=== PATIENT | female | born 1945 | race Caucasian/White ===

== ENCOUNTER 2018-02-19 23:04 | Inpatient (IN) | payer OTHER, MEDICARE ==
--- OUTSIDE RECORDS SUMMARY | 2018-02-19 23:05 | XMS REPORT | Clinical Summary ---
:1945 Author Organization [facility] Address [address] [place] [address] Care Team Providers Name Role Phone Asked, No Pcp Primary Care Provider Unavailable Allergies Active Allergy Reactions Severity Noted Date Comments Codeine Rash Low 12/02/2015 Meperidine Itching, GI Intolerance 12/02/2015 Current Medications Prescription Sig. Disp. Refills Start Date End Date Status ARMOUR THYROID 15 mg Take 1 tablet by 1 12/03/2015 Active tablet mouth once daily. ARMOUR THYROID 60 mg Take 1 tablet by 1 12/03/2015 Active tablet mouth once daily. Active Problems Problem Noted Date Ovarian cancer 01/11/2016 Personal history of malignant neoplasm of uterus 01/11/2016 Family History Medical History Relation Name Comments Colon cancer Father Hypertension Father Hypertension Mother Relation Name Status Comments Father Mother Social History Tobacco Use Types Packs/Day Years Used Date Never Smoker Alcohol Use Drinks/Week oz/Week Comments No Sex Assigned at Date Recorded Not on file Last Filed Vital Signs Not on file Plan of Treatment Health Maintenance Due Date Last Done Comments BREAST CANCER SCREENING 1996 COLON CANCER SCREENING 1996 SHINGRIX VACCINE (#1) 1996 ZOSTER VACCINE 2006 PNEUMOCOCCAL POLYSACCHARIDE VACCINE AGE 65 AND OVER 2011 PNEUMOCOCCAL-13 2011 INFLUENZA VACCINE 01/15/2018 Results Not on fileafter 02/18/2017 Insurance Payer Benefit Plan / Group Subscriber ID Type Phone Address MEDICARE MEDICARE PART A AND B xxxxxxxxxx Medicare [place], [place] AARP AARP SUPPLEMENT xxxxxxxxx Commercial Work: [employer] [phone] [address] Home:
[2018-02-19] MEDS ORDERED: NA CHLORIDE 0.9% 500 ML ONE (23:31)
[2018-02-19] MEDS ORDERED: ONDANSETRON 4 MG/2 ML VIAL ONE (23:31)
[2018-02-19 23:48] LABS: Absolute Lymphocytes (CBC) 1.8 K/uL (0.7-4.9); Absolute Monocytes 0.4 K/uL (0.1-1.3); Absolute Neutrophil 10.1 K/uL (1.8-8.0); Basophils % 0.9 % (0-1.3); Eosinophils % 0.3 % (0-4.4); Hematocrit 51.3 % (36.0-45.0); Lymphocytes % 14.5 % (15.3-44.8); MCH 31.3 pg (27.0-35.0); MCV 91.6 fL (80-100); MPV 7.6 fL (7.6-11.3)
[2018-02-20 00:17] LABS: Albumin 3.9 g/dL (3.4-5.0); Bilirubin Direct 0.2 mg/dL (0-0.2); Bilirubin Total 0.8 mg/dL (0.2-1.0); Potassium 3.8 mmol/L (3.5-5.1); Protein, Total 8.2 g/dL (6.4-8.2)
[2018-02-20] MEDS ORDERED: NA CHLORIDE 0.9% 500 ML ONE (00:20)
[2018-02-20] MEDS ORDERED: ONDANSETRON 4 MG/2 ML VIAL ONE (03:03)
[2018-02-20 03:20] LABS: Urine Amorphous Sediment 4+ /HPF (NONE SEEN); Urine Bacteria <20 /HPF (<20); Urine Culture Reflex Order NOT NEEDED; Urine RBC NONE SEEN /HPF (NONE SEEN)
[2018-02-20] MEDS ORDERED: METRONIDAZOLE 500mg IVPB 500 MG/100 ML BAG IV ONE (03:20)
[2018-02-20] MEDS ORDERED: CEFTRIAXONE/SWI 1gm 1 GM/10 ML SYR ONE (03:20)
[2018-02-20 03:22] LABS: Urine Blood NEGATIVE (NEG); Urine Glucose NEGATIVE (NEG); Urine Protein NEGATIVE (NEG); Urine Specific Gravity 1.015 (1.005-1.030); Urine pH 7.5 (5.0-7.0)
[2018-02-20] MEDS ORDERED: LIDOCAINE VISCOUS 2% SOLN 15 ML UDC ONE (03:27)
--- NOTE | 2018-02-20 03:29 | ER ---
Nurse's Notes [facility] Name: Yanelis Florentino Age: 72 yrs Sex: Female : 1945 Arrival Date: 02/19/2018 Time: 23:06 Bed 23 Private MD: Thom Gleason V Diagnosis: Small bowel obstruction;Enteritis;Dehydration Presentation: 02/19 23:18 Presenting complaint: Patient states: Reports she started having stomach cramps and ea vomiting at around 1430 today. Transition of care: patient was not received from another setting of care. Onset of symptoms was February 19, 2018. Risk Assessment: Do you want to hurt yourself or someone else? Patient reports no desire to harm self or others. Initial Sepsis Screen: Does the patient meet any 2 criteria? HR > 90 bpm. Yes Does the patient have a suspected source of infection? No. Patient's initial sepsis screen is negative. Care prior to arrival: None. 23:18 Method Of Arrival: Wheelchair ea 23:18 Acuity: BRENNEN 3 ea Triage Assessment: 23:21 General: Appears uncomfortable, Behavior is calm, cooperative, appropriate for age. ea Pain: Complains of pain in right lower quadrant Pain currently is 7 out of 10 on a pain scale. Quality of pain is described as Pain began 1430. Neuro: Level of Consciousness is awake, alert, obeys commands, Oriented to person, place, time, situation. Cardiovascular: Patient's skin is warm and dry. Respiratory: Airway is patent Respiratory effort is even, unlabored, Respiratory pattern is regular, symmetrical. GI: Abdomen is non-distended, Bowel sounds present X 4 quads. Abd is soft X 4 quads Abdomen is tender to palpation in right lower quadrant. : No signs and/or symptoms were reported regarding the genitourinary system. Derm: Skin is dry, Skin is pale, Skin temperature is warm. Musculoskeletal: Circulation, motion, and sensation intact. Historical: - Allergies: 23:21 Demerol; ea 23:21 Morphine; ea - PMHx: 23:21 Diverticulitis; Hypothyroidism; ea - PSHx: 23:21 Hysterectomy; Hernia repair; ea - Immunization history:: Adult Immunizations up to date. - Social history:: Smoking status: Patient/guardian denies using tobacco. - Ebola Screening: : No symptoms or risks identified at this time. - Family history:: not pertinent. - Hospitalizations: : No recent hospitalization is reported. Screenin:23 Abuse screen: Denies threats or abuse. Nutritional screening: No deficits noted. ea Tuberculosis screening: No symptoms or risk factors identified. Fall Risk None identified. Assessment: 23:45 Reassessment: Patient and/or family updated on plan of care and expected duration. Pain ea level reassessed. Patient is alert, oriented x 3, equal unlabored respirations, skin warm/dry/pink. reports nausea has decreased. 23:59 Reassessment: Pt completed contrast drink, CT notified. ea 02/20 00:04 Reassessment: Patient and/or family updated on plan of care and expected duration. Pain ea level reassessed. Patient is alert, oriented x 3, equal unlabored respirations, skin warm/dry/pink. 01:18 Reassessment: Patient and/or family updated on plan of care and expected duration. Pain ea level reassessed. Patient is alert, oriented x 3, equal unlabored respirations, skin warm/dry/pink. 02:11 Reassessment: Patient and/or family updated on plan of care and expected duration. Pain ea level reassessed. Patient is alert, oriented x 3, equal unlabored respirations, skin warm/dry/pink. awaiting on CT results. 03:00 Reassessment: Patient and/or family updated on plan of care and expected duration. Pain ea level reassessed. Patient is alert, oriented x 3, equal unlabored respirations, skin warm/dry/pink. 04:36 Reassessment: Patient and/or family updated on plan of care and expected duration. Pain ea level reassessed. Patient is alert, oriented x 3, equal unlabored respirations, skin warm/dry/pink. 05:10 Reassessment: Report given to Rhonda MEJIA on second floor. ea 05:15 Reassessment: Patient and/or family updated on plan of care and expected duration. Pain ea level reassessed. Patient is alert, oriented x 3, equal unlabored respirations, skin warm/dry/pink. Vital Signs: 02/19 23:23 BP 157 / 87; Pulse 92; Resp 18; Temp 97.9; Pulse Ox 97% on R/A; Weight 68.04 kg; Height ea 5 ft. 5 in. (165.10 cm); Pain 7/10; 02/20 00:05 BP 159 / 84; Pulse 79; Resp 18; Pulse Ox 97% on R/A; ea 01:01 BP 146 / 71; Pulse 85; Resp 18; Pulse Ox 95% ; Pain 0/10; ea 02:12 BP 171 / 71; Pulse 77; Resp 18; Pulse Ox 95% ; Pain 0/10; ea 03:00 BP 154 / 91; Pulse 89; Resp 18; Pulse Ox 97% on R/A; ea 04:22 BP 123 / 78; Pulse 78; Resp 18; Pulse Ox 97% on R/A; ea 02/19 23:23 Body Mass Index 24.96 (68.04 kg, 165.10 cm) ea ED Course: 02/19 23:06 Patient arrived in ED. am2 23:06 Thom Gleason MD is Private Physician. am2 23:15 David Orona MD is Attending Physician. rn 23:17 Lorenza Dong RN is Primary Nurse. ea 23:19 Triage completed. ea 23:23 Patient has correct armband on for positive identification. Bed in low position. Call ea light in reach. Side rails up X2. 23:24 Arm band placed on right wrist. Patient placed in an exam room, on a stretcher, on ea pulse oximetry. 23:40 Inserted saline lock: 20 gauge in right antecubital area, using aseptic technique. ea Blood collected. 02/20 00:00 Oral contrast reported to be complete. eh 02:01 CT completed. Patient tolerated procedure well. Patient moved to CT via stretcher. eh 02:11 CT Abd/Pelvis - W/Contrast In Process Unspecified. EDMS 02:14 Patient moved back from CT. eh 03:27 Thom Gleason MD is Hospitalizing Provider. rn 04:21 NGT: inserted 14 Fr. via right nare. verified placement of air over stomach, verified ea return of gastric contents, to intermittent suction. Returned gastric contents. Patient tolerated well. 04:21 No provider procedures requiring assistance completed. Patient admitted, IV remains in ea place. Administered Medications: 02/19 23:41 Drug: NS 0.9% 500 ml Route: IV; Rate: bolus; Site: right antecubital; ea 02/20 00:18 Follow up: Response: No adverse reaction; IV Status: Completed infusion; IV Intake: ea 500ml 02/19 23:41 Drug: Zofran 4 mg Route: IVP; Site: right antecubital; ea 02/20 00:04 Follow up: Response: No adverse reaction; Nausea is decreased ea 00:18 Drug: NS 0.9% 500 ml Route: IV; Rate: bolus; Site: right antecubital; ea 01:00 Follow up: Response: No adverse reaction; IV Status: Completed infusion; IV Intake: ea 500ml 03:02 Drug: Zofran 4 mg Route: IVP; Site: right antecubital; ea 03:30 Follow up: Response: No adverse reaction; Marked relief of symptoms ea 03:15 Drug: Rocephin - (cefTRIAXone) 1 grams Route: IVPB; Infused Over: 30 mins; Site: right ea antecubital; 04:07 Follow up: Response: No adverse reaction; IV Status: Completed infusion ea 04:07 Drug: Flagyl 500 mg Volume: 100 ml; Route: IVPB; Rate: 200 ml/hr; Infused Over: 30 ea mins; Site: right antecubital; 04:40 Follow up: Response: No adverse reaction; IV Status: Completed infusion; IV Intake: ea 100ml 04:20 Drug: TORadol 30 mg Route: IVP; Site: right antecubital; ea 05:00 Follow up: Response: No adverse reaction; Pain is decreased ea Intake: 00:18 IV: 500ml; Total: 500ml. ea 01:00 IV: 500ml; Total: 1000ml. ea 04:40 IV: 100ml; Total: 1100ml. ea Outcome: 03:28 Decision to Hospitalize by Provider. rn 04:37 Instructed on the need for admit. ea 05:20 Admitted to Med/surg accompanied by nurse, with chart, Report called to Rhonda MEJIA ea 05:20 Condition: stable 05:53 Patient left the ED. ea Signatures: Dispatcher [employer] Antonio Swan Roman, MD MD rn Moreno, Amanda am2 Antunez, Elena, RN RN ea
--- NOTE | 2018-02-20 03:29 | EDPHYS ---
Physician Documentation [facility] Name: Yanelis Florentino Age: 72 yrs Sex: Female : 1945 Arrival Date: 02/19/2018 Time: 23:06 Bed 23 Private MD: Thom Gleason V ED Physician David Orona HPI: 02/19 23:21 This 72 yrs old Female presents to ER via Wheelchair with complaints of rn Abdominal Pain, Vomiting. 23:21 The patient presents to the emergency department with nausea, vomiting, abdominal pain, rn of the suprapubic area, right lower quadrant and left lower quadrant. Onset: The symptoms/episode began/occurred just prior to arrival. Possible causes: unknown. Associated signs and symptoms: Pertinent positives: abdominal pain, nausea, vomiting, Pertinent negatives: diarrhea, fever, GI bleeding. Severity of symptoms: At their worst the symptoms were moderate in the emergency department the symptoms are unchanged. The patient has experienced a previous episode. Reports lower abd pain, vomiting, began just [employer], just ate some [place] island[place] food, doesn't have an appendix, no fever, no diarrhea. . Historical: - Allergies: 23:21 Demerol; ea 23:21 Morphine; ea - PMHx: 23:21 Diverticulitis; Hypothyroidism; ea - PSHx: 23:21 Hysterectomy; Hernia repair; ea - Immunization history:: Adult Immunizations up to date. - Social history:: Smoking status: Patient/guardian denies using tobacco. - Ebola Screening: : No symptoms or risks identified at this time. - Family history:: not pertinent. - Hospitalizations: : No recent hospitalization is reported. ROS: 23:21 Constitutional: Negative for fever, chills, and weight loss, Eyes: Negative for injury, rn pain, redness, and discharge, Neck: Negative for injury, pain, and swelling, Cardiovascular: Negative for chest pain, palpitations, and edema, Respiratory: Negative for shortness of breath, cough, wheezing, and pleuritic chest pain, Abdomen/GI: + abd pain/vomiting, no diarrhea MS/Extremity: Negative for injury and deformity, Skin: Negative for injury, rash, and discoloration, Neuro: Negative for headache, weakness, numbness, tingling, and seizure. Exam: 23:21 Constitutional: This is a well developed, well nourished patient who is awake, alert, rn looks like doesn't feel well, holding emesis bag Head/Face: Normocephalic, atraumatic. Eyes: Pupils equal round and reactive to light, extra-ocular motions intact. Lids and lashes normal. Conjunctiva and sclera are non-icteric and not injected. Cornea within normal limits. Periorbital areas with no swelling, redness, or edema. ENT: dry MM Cardiovascular: Regular rate and rhythm with a normal S1 and S2. No gallops, murmurs, or rubs. Normal PMI, no JVD. No pulse deficits. Respiratory: Lungs have equal breath sounds bilaterally, clear to auscultation and percussion. No rales, rhonchi or wheezes noted. No increased work of breathing, no retractions or nasal flaring. Abdomen/GI: soft, mild suprapubic tenderness, no rebound/masses MS/ Extremity: Pulses equal, no cyanosis. Neurovascular intact. Full, normal range of motion. Equal circumference. Neuro: Awake and alert, GCS 15, oriented to person, place, time, and situation. Cranial nerves II-XII grossly intact. Motor strength 5/5 in all extremities. Sensory grossly intact. Vital Signs: 23:23 BP 157 / 87; Pulse 92; Resp 18; Temp 97.9; Pulse Ox 97% on R/A; Weight 68.04 kg; Height ea 5 ft. 5 in. (165.10 cm); Pain 7/10; 02/20 00:05 BP 159 / 84; Pulse 79; Resp 18; Pulse Ox 97% on R/A; ea 01:01 BP 146 / 71; Pulse 85; Resp 18; Pulse Ox 95% ; Pain 0/10; ea 02:12 BP 171 / 71; Pulse 77; Resp 18; Pulse Ox 95% ; Pain 0/10; ea 03:00 BP 154 / 91; Pulse 89; Resp 18; Pulse Ox 97% on R/A; ea 04:22 BP 123 / 78; Pulse 78; Resp 18; Pulse Ox 97% on R/A; ea 02/19 23:23 Body Mass Index 24.96 (68.04 kg, 165.10 cm) ea MDM: 02/19 23:15 Patient medically screened. rn 02/20 00:24 Response to treatment: the patient's symptoms have markedly improved after treatment. rn 03:27 Differential diagnosis: Nonspecific abd pain, gastritis, diverticulitis, viral rn gastroenteritis, gastroenteritis, SBO. Data reviewed: vital signs, nurses notes, lab test result(s), radiologic studies, CT scan, and as a result, I will admit patient. Counseling: I had a detailed discussion with the patient and/or guardian regarding: the historical points, exam findings, and any diagnostic results supporting the discharge/admit diagnosis, lab results, radiology results, the need for further work-up and treatment in the hospital. Admission orders: after a detailed discussion of the patient's condition and case, the admit orders are written by me. 02/19 23:20 Order name: Basic Metabolic Panel; Complete Time: 00:40 rn 02/19 23:20 Order name: CBC with Diff; Complete Time: 00:12 rn 02/19 23:20 Order name: Creatinine for Radiology; Complete Time: 00:12 rn 02/19 23:20 Order name: Hepatic Function; Complete Time: 00:40 rn 02/19 23:20 Order name: Lipase; Complete Time: 00:40 rn 02/19 23:20 Order name: Urine Microscopic Only; Complete Time: 06:49 rn 02/19 23:21 Order name: CT Abd/Pelvis - W/Contrast rn 02/20 02:56 Order name: Urine Dipstick--Ancillary (enter results); Complete Time: 06:49 rg2 02/19 23:20 Order name: IV Saline Lock; Complete Time: 23:41 rn 02/19 23:20 Order name: Labs collected and sent; Complete Time: 23:41 rn 02/19 23:20 Order name: Urine Dipstick-Ancillary (obtain specimen); Complete Time: 03:02 rn 02/20 03:09 Order name: NPO; Complete Time: 03:24 rn 02/20 03:09 Order name: NG Tube; Complete Time: 04:20 rn Administered Medications: 02/19 23:41 Drug: NS 0.9% 500 ml Route: IV; Rate: bolus; Site: right antecubital; ea 02/20 00:18 Follow up: Response: No adverse reaction; IV Status: Completed infusion; IV Intake: ea 500ml 02/19 23:41 Drug: Zofran 4 mg Route: IVP; Site: right antecubital; ea 02/20 00:04 Follow up: Response: No adverse reaction; Nausea is decreased ea 00:18 Drug: NS 0.9% 500 ml Route: IV; Rate: bolus; Site: right antecubital; ea 01:00 Follow up: Response: No adverse reaction; IV Status: Completed infusion; IV Intake: ea 500ml 03:02 Drug: Zofran 4 mg Route: IVP; Site: right antecubital; ea 03:30 Follow up: Response: No adverse reaction; Marked relief of symptoms ea 03:15 Drug: Rocephin - (cefTRIAXone) 1 grams Route: IVPB; Infused Over: 30 mins; Site: right ea antecubital; 04:07 Follow up: Response: No adverse reaction; IV Status: Completed infusion ea 04:07 Drug: Flagyl 500 mg Volume: 100 ml; Route: IVPB; Rate: 200 ml/hr; Infused Over: 30 ea mins; Site: right antecubital; 04:40 Follow up: Response: No adverse reaction; IV Status: Completed infusion; IV Intake: ea 100ml 04:20 Drug: TORadol 30 mg Route: IVP; Site: right antecubital; ea 05:00 Follow up: Response: No adverse reaction; Pain is decreased ea Disposition: 02/20/18 03:28 Hospitalization ordered by Thom Gleason for Inpatient Admission. Preliminary diagnosis are Small bowel obstruction, Enteritis, Dehydration. - Bed requested for Telemetry/MedSurg (Inpatient). - Status is Inpatient Admission. ea - Condition is Stable. - Problem is new. - Symptoms have improved. UTI on Admission? No Signatures: Dispatcher [employer] EDNo Jeffries RN RN kl Nieto, Roman, MD MD rn Antunez, Elena, RN RN ea Corrections: (The following items were deleted from the chart) 04:33 03:28 Hospitalization Ordered by Thom Gleason MD for Inpatient Admission. Preliminary louise diagnosis is Small bowel obstruction; Enteritis; Dehydration. Bed requested for Telemetry/MedSurg (Inpatient). Status is Inpatient Admission. Condition is Stable. Problem is new. Symptoms have improved. UTI on Admission? No. rn 05:53 04:33 02/20/2018 03:28 Hospitalization Ordered by Thom Gleason MD for Inpatient ea Admission. Preliminary diagnosis is Small bowel obstruction; Enteritis; Dehydration. Bed requested for Telemetry/MedSurg (Inpatient). Status is Inpatient Admission. Condition is Stable. Problem is new. Symptoms have improved. UTI on Admission? No. kl
[2018-02-20] MEDS ORDERED: KETOROLAC 30 MG/ML INJ ONE (04:14)
[2018-02-20] MEDS ORDERED: ONDANSETRON 4 MG/2 ML VIAL IV PRN (05:05)
[2018-02-20 05:59] VITALS: BMI 25.0
[2018-02-20] MEDS: D5 0.45 NS 1,000 ML IV SCH ×3 (06:28→20:39)
--- NOTE | 2018-02-20 08:16 | RAD REPORT ---
EXAM DESCRIPTION: CTAbdomen Pelvis W Contrast - 02/20/2018 4:30 am CLINICAL HISTORY: Abdominal pain. Abd pain;Nausea / vomiting COMPARISON: Abdomen Pelvis W Contrast dated 11/19/2016; CT ABD PELVIS W CONTRAST dated 04/11/2013; C T ABD PELVIS W CONTRAST dated 11/05/2011 TECHNIQUE: Biphasic CT imaging of the abdomen and pelvis was performed with 100 ml non-ionic IV cont rast. All CT scans are performed using dose optimization technique as appropriate and may include automated exposure control or mA/KV adjustment according to patient size. FINDINGS: Moderate linear opacities in both lung bases probably represent atelectasis.Small hiatal h ernia is noted. The liver appears mildly prominent in size with fatty liver infiltration. The spleen, pancreas, adren al glands and kidneys are within normal limits. Multiple dilated small bowel loops are present in the abdomen compatible with moderate mechanical sma ll-bowel obstruction. Clear transition point is somewhat difficult to assess but suspected to be in t he right lower quadrant region. No pneumatosis seen. No evidence of perforation or abscess. Scattered diverticulosis is present throughout the colon. Mild free fluid is seen in the abdomen and pelvis. Mild lumbosacral degenerative changes. IMPRESSION: Mild to moderate mechanical small-bowel obstruction.
[2018-02-20] MEDS: METRONIDAZOLE 500mg IVPB 500 MG/100 ML BAG IV SCH ×2 (08:18→16:50)
[2018-02-20] MEDS ORDERED: CEFTRIAXONE 1 GM/NS 50 ML 1 GM/50 ML BAG IV SCH (09:00)
[2018-02-20] MEDS ORDERED: PNEUMOCOCCAL VACCINE 0.5 ML IMVAC ONE (10:00)
--- NOTE | 2018-02-20 12:29 | RAD REPORT ---
EXAM DESCRIPTION: RAD - Chest Single View - 02/20/2018 12:20 pm CLINICAL HISTORY: NGT placement Chest pain. COMPARISON: CHEST PA AND LAT 2 VIEW dated 11/05/2011 FINDINGS: Enteric tube is seen in the stomach.
--- NOTE | 2018-02-20 13:02 | P.HP ---
Certification for Inpatient Patient admitted to: Inpatient With expected LOS: >2 Midnights Practitioner: I am a practitioner with admitting privileges, knowledge of patient current condition, hospital course, and medical plan of care. Services: Services provided to patient in accordance with Admission requirements found in Title 42 Section 412.3 of the Code of Federal Regulations Patient History Date of Service: 02/20/18 Reason for admission: ABDOMEN PAIN, NAUSEA , VOMTING History of Present Illness: MR. YOUNG HAS ABOVE SYMPTOMS FOR A DAY OR SO. SHE HAS HAD SURGERY FOR OVARIAN CYST IN THE PAST. SHE DENIES CHEST PAIN. Allergies codeine [Codeine] Allergy (Verified 02/20/18 05:49) Hives/Rash meperidine HCl [From Demerol] Allergy (Verified 02/20/18 05:49) Itching morphine Allergy (Verified 02/20/18 05:49) Nausea/Vomiting Home Medications: Levothyroxine [Synthroid*] 0.05 mcg PO DAILY 02/20/18 Thyroid Tab [Polson Thyroid] 30 mg PO DAILY 02/20/18 - Past Medical/Surgical History Has patient received pneumonia vaccine in the past: No Diabetic: No -: Hypothyroidism -: neuroma on feet -: Hysterectomy -: Hernia Repair - Family History Mother -: Hypertension Father -: Hypertension Sister -: Cancer - Social History Smoking Status: Never smoker Alcohol use: No CD- Drugs: No Caffeine use: Yes Place of Residence: Home Review of Systems 10-point ROS is otherwise unremarkable Gastrointestinal: Nausea, Vomiting Physical Examination - Vital Signs Temperature: 98 F Blood Pressure: 130/73 Pulse: 86 Respirations: 18 Pulse Ox (%): 96 - Physical Exam General: Alert, In no apparent distress HEENT: Atraumatic, PERRLA, Mucous membr. moist/pink, EOMI, Sclerae nonicteric Neck: Supple, 2+ carotid pulse no bruit, No LAD, Without JVD or thyroid abnormality Respiratory: Clear to auscultation bilaterally, Normal air movement Cardiovascular: Regular rate/rhythm, Normal S1 S2 Gastrointestinal: Non-distended, Absent bowel sounds Musculoskeletal: No tenderness Integumentary: No rashes Neurological: Normal gait, Normal speech, Normal strength at 5/5 x4 extr, Normal tone, Normal affect Lymphatics: No axilla or inguinal lymphadenopathy - Studies Laboratory Data (last 24 hrs) 02/19/18 23:40: Creatinine 0.80 02/19/18 23:40: WBC 12.4 H, Hgb 17.6 H, Hct 51.3 H, Plt Count 328 02/19/18 23:40: Sodium 140, Potassium 3.8, BUN 14, Creatinine 0.70, Glucose 188 H, Total Bilirubin 0.8, AST 30, ALT 29, Alkaline Phosphatase 153 H, Lipase 232 Assessment and Plan - Problems (Diagnosis) (1) Small bowel obstruction Current Visit: Yes Status: Acute Plan: NGT TO LIS. CONSULT SURGERY. MOST LIKELY WILL IMPROVE WITH LIS. SHE UNDERSTANDS. SCARRING OF THE TISSUE MAY BE THE REASON. - Advance Directives Does patient have a Living Will: Yes Does patient have a Durable POA for Healthcare: Yes
--- NOTE | 2018-02-20 18:19 | P.CNS ---
Date of Consult: 02/20/18 PC: I was asked to see this 72-year-old female in regards to her abdominal pain nausea and vomiting. HPC: Patient presents emergency room last night. Was having severe hard cramping abdominal pain. Followed after having had a [place] dinner. Describes as severe, unrelenting, located in the right lower portion of her abdomen. PMH: Hypothyroidism PSHx: Previous hysterectomy SOC: Allergic to codeine, Demerol, and morphine SYS REVIEW: States he has otherwise been in good health. No cough, wheeze, shortness of breath. No chest pain or palpitations. No sore teeth or jaw pain. O/E awake alert comfortable at the moment, clinically appears well HEENT: Nasogastric tube in place Chest: Air entry equal bilaterally ABD: Soft nontender, no guarding or rebound LOCO: Intact DATA: The white cell count, CT scan was suggestive of partial small-bowel obstruction IMPRESSION: This patient is partial small-bowel obstruction, most likely from adhesions. Clinically she is much improved after being rehydrated having the nasogastric tube in for the last 12 hr. PLAN: I will place 60 cc of mineral oil down through the nasogastric tube. We will clamp it for 3 hr. We will then Dc the NG tube. When I will re-evaluate her in the morning but do not feel that she will require surgical intervention for this partial small-bowel obstruction. We will check her lab work, and follow clinically in a.m..
[2018-02-20] MEDS: MINERAL OIL 30 ML UCUP GT ONE (18:36)
[2018-02-20] MEDS: CEFTRIAXONE/SWI 1gm 1 GM/10 ML SYR IV SCH (20:39)
[2018-02-21] MEDS: METRONIDAZOLE 500mg IVPB 500 MG/100 ML BAG IV SCH ×3 (00:41→17:37)
[2018-02-21] MEDS: D5 0.45 NS 1,000 ML IV SCH ×4 (00:41→21:05)
[2018-02-21 04:51] LABS: Absolute Lymphocytes (CBC) 2.1 K/uL (0.7-4.9); Absolute Monocytes 0.8 K/uL (0.1-1.3); Absolute Neutrophil 5.3 K/uL (1.8-8.0); Eosinophils % 1.5 % (0-4.4); Hematocrit 40.2 % (36.0-45.0); Lymphocytes % 25.1 % (15.3-44.8); MCH 32.1 pg (27.0-35.0); MCV 91.9 fL (80-100); MPV 7.6 fL (7.6-11.3); RBC Red Blood Cell Count 4.37 M/uL (3.86-4.86)
[2018-02-21 05:05] LABS: ALT/SGPT 18 U/L (12-78); AST/SGOT 15 U/L (15-37); Albumin 2.7 g/dL (3.4-5.0); Alkaline Phosphatase 95 U/L (45-117); BUN Blood Urea Nitrogen 12 mg/dL (7-18); Bicarbonate 27 mmol/L (21-32); Bilirubin Direct 0.1 mg/dL (0-0.2); Bilirubin Total 0.4 mg/dL (0.2-1.0); Glucose Level 127 mg/dL (74-106); Lipase 144 U/L (73-393); Potassium 3.5 mmol/L (3.5-5.1); Protein, Total 5.6 g/dL (6.4-8.2); Sodium Level 141 mmol/L (136-145)
[2018-02-21] MEDS: LEVOTHYROXINE SOD 0.05 MG TABLET PO SCH (06:02)
[2018-02-21] MEDS: THYROID 30 MG TAB PO SCH (09:00)
[2018-02-21 13:38] VITALS: O2SAT 94
--- NOTE | 2018-02-21 15:42 | P.PN ---
Subjective Date of Service: 02/21/18 Chief Complaint: ABDOMEN PAIN, NAUSEA , VOMTING Subjective: Improving (DR GABRIEL ORDERED MINERAL OIL ORALLY AND NGT WAS TAKEN OUT.) SHE HAS NOT PASSED GAS OR BM YET. SHE AND WANT COFFEE FOR HER. I DON' T FEEL COMFORTABLE YET BUT DR. GABRIEL HAS ADVISED CLEAR LIQUIDS. SHE IS WILING TO TRY. I TOLD HER THAT THIS IS TRIAL AND ERROR AT THIS POINT. SHE IF IFFAILS TO HAVE BM AND HAS NAUSEA AND VOMITING WILL NEED NGT AGAIN . Review of Systems 10-point ROS is otherwise unremarkable General: Weakness, Malaise Gastrointestinal: No Distention Physical Examination - Vital Signs Temperature: 97.8 F Blood Pressure: 127/59 Pulse: 64 Respirations: 18 Pulse Ox (%): 96 - Physical Exam General: Alert, Mild distress HEENT: Atraumatic, PERRLA, EOMI Neck: Supple, JVD not distended Respiratory: Clear to auscultation bilaterally, Normal air movement Cardiovascular: Regular rate/rhythm, Normal S1 S2 Gastrointestinal: No tenderness, Hyperactive Musculoskeletal: No tenderness Integumentary: No rashes Neurological: Normal speech, Normal tone, Normal affect Lymphatics: No axilla or inguinal lymphadenopathy - Studies Medications List Reviewed: Yes Assessment And Plan - Current Problems (Diagnosis) (1) Small bowel obstruction Onset Date: 02/21/18 Current Visit: Yes Status: Acute Plan: NGT TO LIS. CONSULT SURGERY. MOST LIKELY WILL IMPROVE WITH LIS. SHE UNDERSTANDS. SCARRING OF THE TISSUE MAY BE THE REASON. PROCESS PER DR. GABRIEL I EXPLAINED TO THAT GI TRACT MAKES ABOUT 1 LT OF FLUID DAILY AT LEAST AND THAT IS WHY SHE CAN STILL HAVE BM FROM IT AND PREVIOUS TWO WEEKS FOOD. HE UNDERSTOOD. SHE IS COMFORTABLE.
[2018-02-21] MEDS: CEFTRIAXONE/SWI 1gm 1 GM/10 ML SYR IV SCH (21:50)
[2018-02-22] MEDS: METRONIDAZOLE 500mg IVPB 500 MG/100 ML BAG IV SCH ×2 (01:12→09:09)
[2018-02-22] MEDS: D5 0.45 NS 1,000 ML IV SCH ×3 (03:46→12:25)
[2018-02-22] MEDS: LEVOTHYROXINE SOD 0.05 MG TABLET PO SCH (05:46)
[2018-02-22] MEDS: THYROID 30 MG TAB PO SCH (09:09)
--- NOTE | 2018-02-22 11:23 | P.DS ---
Admission Date: 02/20/18 Discharge Date: 02/22/18 Disposition: ROUTINE DISCHARGE Discharge Condition: FAIR Reason for Admission: ABDOMEN PAIN, NAUSEA , VOMTING - Problems (1) Small bowel obstruction Onset Date: 02/21/18 Current Visit: Yes Status: Acute Brief History of Present Illness: MR. YOUNG HAS ABOVE SYMPTOMS FOR A DAY OR SO. SHE HAS HAD SURGERY FOR OVARIAN CYST IN THE PAST. SHE DENIES CHEST PAIN. MS. YOUNG HAD BOWEL OBSTRUCTION THAT HAS NOW RELIEVED. SHE HAD LARGE BM TODAY WITH CONSERVATIVE THERAPY. SHE IS STABLE. I HAD LONG DISCUSSION WITH HER AND ABOUT INTESTINES AND THAT SHE NOW HAS TO CHEW FOOD FOR LONG DURATION BEFORE SWALLOWING. SHE WILL FU IN OFFICE IN 10 DAYS. Vital Signs/Physical Exam: Temp Pulse Resp BP Pulse Ox 98.9 F 71 17 125/63 94 02/22/18 08:00 02/22/18 08:00 02/22/18 08:00 02/22/18 08:00 02/22/18 08:00 Laboratory Data at Discharge: WBC 8.3 K/uL (4.3-10.9) D 02/21/18 04:06 Hgb 14.0 g/dL (12.0-15.0) D 02/21/18 04:06 Hct 40.2 % (36.0-45.0) D 02/21/18 04:06 Plt Count 263 K/uL (152-406) 02/21/18 04:06 Sodium 141 mmol/L (136-145) 02/21/18 04:06 Potassium 3.5 mmol/L (3.5-5.1) 02/21/18 04:06 BUN 12 mg/dL (7-18) 02/21/18 04:06 Creatinine 0.60 mg/dL (0.55-1.3) 02/21/18 04:06 Glucose 127 mg/dL (74-106) H 02/21/18 04:06 Total Bilirubin 0.4 mg/dL (0.2-1.0) 02/21/18 04:06 AST 15 U/L (15-37) 02/21/18 04:06 ALT 18 U/L (12-78) 02/21/18 04:06 Alkaline Phosphatase 95 U/L (45-117) 02/21/18 04:06 Lipase 144 U/L (73-393) 02/21/18 04:06 Home Medications: Levothyroxine [Synthroid*] 0.05 mcg PO DAILY 02/20/18 Thyroid Tab [Frankford Thyroid*] 30 mg PO DAILY 02/20/18
[2018-02-22 12:55] VITALS: BP 155/67; TEMP 98.5
== END 2018-02-22 14:59 | disposition home or self-care (01) | DRG 390 ==
LOC: ER 23:04 → ERHOLD 02-20 04:52 → 2ND 02-20 04:53
PROVIDERS: ADMIT Internal Medicine; ATTEND Internal Medicine
DX: K56.51 Intestinal adhesions [bands], with partial obstruction (principal); E03.9 Hypothyroidism, unspecified; E86.0 Dehydration; Z88.5 Allergy status to narcotic agent
CPT/HCPCS: 36415; 71045; 74177; 80048; 80076; 81003; 81015; 83690; 85025; 96361; 96365; 96367; 96375; 99285; J0696; J2405; Q9967

== ENCOUNTER 2018-11-29 23:47 | Observation (INO) | payer OTHER, MEDICARE ==
--- OUTSIDE RECORDS SUMMARY | 2018-11-29 23:50 | XMS REPORT | Clinical Summary ---
:1945 Author Organization [facility] Address [address] [place] [address] Care Team Providers Name Role Phone Asked, No Pcp Primary Care Provider Unavailable Allergies Active Allergy Reactions Severity Noted Date Comments Codeine Rash Low 12/02/2015 Meperidine Itching, GI Intolerance 12/02/2015 Medications Medication Sig Dispensed Refills Start Date End Date Status ARMOUR [...] Assigned at Date Recorded Not on file Job Start Date Occupation Industry Not on file Not on file Not on file Travel History Travel Start Travel End No recent travel history available. Last Filed Vital Signs Not on file Plan of Treatment Health Maintenance Due Date Last Done Comments BREAST CANCER SCREENING 1996 COLONOSCOPY SCREENING 1996 SHINGLES VACCINES (#1) 1996 65+ PNEUMOCOCCAL VACCINE (1 of 2 - PCV13) 2011 INFLUENZA VACCINE 01/15/2019 Results Not on fileafter 11/28/2017 Insurance Payer Benefit Plan / Subscriber ID Effective Dates Phone Address Type Group MEDICARE MEDICARE PART A xxxxxxxxxx 2011-Present [place], [place] Medicare AND B AARP AARP SUPPLEMENT xxxxxxxxx 2015-[employer] (Work) Advance Directives Patient has advance care planning documents on file. For more information, please contact:Stephen Pringle[address] [place] [address]
[2018-11-30 00:21] LABS: Absolute Lymphocytes (CBC) 2.2 K/uL (0.7-4.9); Basophils % 1.3 % (0-1.3); Eosinophils % 2.2 % (0-4.4); Hematocrit 47.8 % (36.0-45.0); Lymphocytes % 21.9 % (15.3-44.8); MPV 7.8 fL (7.6-11.3); Monocytes % 7.9 % (3.3-12.3); RBC Red Blood Cell Count 5.16 M/uL (3.86-4.86)
[2018-11-30] MEDS ORDERED: PROMETHAZINE 25 MG/ML VIAL ONE (00:30)
[2018-11-30] MEDS ORDERED: KETOROLAC 30 MG/ML INJ ONE (00:30)
[2018-11-30] MEDS ORDERED: NA CHLORIDE 0.9% 1,000 ML ONE ×2 (00:30→06:35)
[2018-11-30 00:57] LABS: ALT/SGPT 29 U/L (12-78); AST/SGOT 21 U/L (15-37); Albumin 3.7 g/dL (3.4-5.0); Alkaline Phosphatase 148 U/L (45-117); BUN Blood Urea Nitrogen 12 mg/dL (7-18); Bicarbonate 23 mmol/L (21-32); Bilirubin Direct < 0.1 mg/dL (0-0.2); Bilirubin Total 0.4 mg/dL (0.2-1.0); Glucose Level 124 mg/dL (74-106); Lipase 307 U/L (73-393); Potassium 3.7 mmol/L (3.5-5.1); Protein, Total 7.7 g/dL (6.4-8.2); Sodium Level 141 mmol/L (136-145)
[2018-11-30 03:43] LABS: Urine Amorphous Sediment 1+ /HPF (NONE SEEN); Urine Bacteria <20 /HPF (<20); Urine Culture Reflex Order NOT NEEDED; Urine RBC NONE SEEN /HPF (NONE SEEN)
[2018-11-30] MEDS ORDERED: CEFTRIAXONE/SWI 1gm 1 GM/10 ML SYR ONE (03:48)
[2018-11-30] MEDS ORDERED: METRONIDAZOLE 500mg IVPB 500 MG/100 ML BAG IV ONE ×2 (04:53→09:22)
--- NOTE | 2018-11-30 05:35 | EDPHYS ---
Physician Documentation [facility] Name: Yanelis Florentino Age: 73 yrs Sex: Female : 1945 Arrival Date: 11/29/2018 Time: 23:50 Bed 24 Private MD: Thom Gleason V ED Physician Canelo Guerra HPI: 11/30 00:10 This 73 yrs old Female presents to ER via Ambulatory with complaints of snw Abdominal Pain. 00:10 The patient presents with abdominal pain in the epigastric area, that is diffuse. snw Onset: The symptoms/episode began/occurred suddenly, 6 hour(s) ago. The symptoms do not radiate. Associated signs and symptoms: Pertinent positives: nausea. The symptoms are described as constant. Severity of pain: At its worst the pain was moderate severe in the emergency department the pain is unchanged. The patient has experienced a previous episode, approximately 9 months ago. The patient has not recently seen a physician, the patient's primary care provider is Dr. Gleason. Historical: - Allergies: 11/29 23:59 Demerol; la1 23:59 Morphine; la1 - PMHx: 23:59 Diverticulitis; Hypothyroidism; la1 - PSHx: 23:59 Hernia repair; Bowel obstruction; la1 - Immunization history:: Adult Immunizations up to date. - Social history:: Smoking status: Patient/guardian denies using tobacco. - Ebola Screening: : No symptoms or risks identified at this time. ROS: 11/30 00:09 Constitutional: Negative for fever, chills, and weight loss, Eyes: Negative for injury, snw pain, redness, and discharge, ENT: Negative for injury, pain, and discharge, Neck: Negative for injury, pain, and swelling, Cardiovascular: Negative for chest pain, palpitations, and edema, Respiratory: Negative for shortness of breath, cough, wheezing, and pleuritic chest pain, Back: Negative for injury and pain, : Negative for injury, bleeding, discharge, and swelling, MS/Extremity: Negative for injury and deformity, Skin: Negative for injury, rash, and discoloration, Neuro: Negative for headache, weakness, numbness, tingling, and seizure. Abdomen/GI: Positive for abdominal pain, nausea. Exam: 00:08 Head/Face: Normocephalic, atraumatic. Eyes: Pupils equal round and reactive to light, snw extra-ocular motions intact. Lids and lashes normal. Conjunctiva and sclera are non-icteric and not injected. Cornea within normal limits. Periorbital areas with no swelling, redness, or edema. ENT: Nares patent. No nasal discharge, no septal abnormalities noted. Tympanic membranes are normal and external auditory canals are clear. Oropharynx with no redness, swelling, or masses, exudates, or evidence of obstruction, uvula midline. Mucous membranes moist. Neck: Trachea midline, no thyromegaly or masses palpated, and no cervical lymphadenopathy. Supple, full range of motion without nuchal rigidity, or vertebral point tenderness. No Meningismus. Chest/axilla: Normal chest wall appearance and motion. Nontender with no deformity. No lesions are appreciated. Cardiovascular: Regular rate and rhythm with a normal S1 and S2. No gallops, murmurs, or rubs. Normal PMI, no JVD. No pulse deficits. Respiratory: Lungs have equal breath sounds bilaterally, clear to auscultation and percussion. No rales, rhonchi or wheezes noted. No increased work of breathing, no retractions or nasal flaring. 00:08 Back: No spinal tenderness. No costovertebral tenderness. Full range of motion. MS/ Extremity: Pulses equal, no cyanosis. Neurovascular intact. Full, normal range of motion. Neuro: Awake and alert, GCS 15, oriented to person, place, time, and situation. Cranial nerves II-XII grossly intact. Motor strength 5/5 in all extremities. Sensory grossly intact. Cerebellar exam normal. Normal gait. Psych: Awake, alert, with orientation to person, place and time. Behavior, mood, and affect are within normal limits. 00:08 Constitutional: The patient appears alert, anxious, uncomfortable. 00:08 Abdomen/GI: Inspection: abdomen appears normal, Bowel sounds: diminished, Palpation: mild abdominal tenderness, in all quadrants. 00:08 Skin: Appearance: normal except for affected area, Color: normal in color, Moisture: dry. Vital Signs: 00:01 BP 140 / 74; Pulse 80; Resp 16; Temp 97.6; Pulse Ox 98% on R/A; Weight 68.04 kg; Height la1 5 ft. 5 in. (165.10 cm); Pain 5/10; 01:34 BP 148 / 82; Pulse 78; Resp 18; Pulse Ox 96% on R/A; mg2 03:42 BP 153 / 77; Pulse 77; Resp 16 S; Temp 98.5(O); Pulse Ox 96% on R/A; bb 05:30 BP 159 / 74; Pulse 85; Resp 16 S; Temp 97.9(O); Pulse Ox 99% on R/A; Pain 0/10; bb 00:01 Body Mass Index 24.96 (68.04 kg, 165.10 cm) la1 MDM: 11/29 23:58 Patient medically screened. [facility] 11/30 03:00 Data reviewed: vital signs, nurses notes. Data interpreted: Pulse oximetry: on room air snw is 96 %. Interpretation: acceptable. Counseling: I had a detailed discussion with the patient and/or guardian regarding: the historical points, exam findings, and any diagnostic results supporting the discharge/admit diagnosis, lab results. Transition of care: After a detail discussion of the patient's case, care is transferred to Canelo Guerra MD. 11/30 00:06 Order name: Basic Metabolic Panel; Complete Time: 01:16 snw 11/30 00:06 Order name: CBC with Diff; Complete Time: 00:26 snw 11/30 00:06 Order name: Creatinine for Radiology; Complete Time: 01:16 snw 11/30 00:06 Order name: Hepatic Function; Complete Time: 01:16 snw 11/30 00:06 Order name: Lipase; Complete Time: 01:16 snw 11/30 02:59 Order name: Urine Culture snw 11/30 00:08 Order name: CT Abd/Pelvis - PO and IV Contrast snw 11/30 02:59 Order name: Urine Microscopic Only; Complete Time: 04:16 snw 11/30 00:06 Order name: IV Saline Lock; Complete Time: 00:12 snw 11/30 00:06 Order name: Labs collected and sent; Complete Time: 00:12 snw 11/30 02:59 Order name: Urine Dipstick-Ancillary (obtain specimen); Complete Time: 03:14 snw 11/30 06:30 Order name: Diet Npo; Complete Time: 06:32 bb Administered Medications: 00:20 Drug: NS 0.9% 500 ml Route: IV; Rate: bolus; Site: right antecubital; la1 03:14 Follow up: Response: No adverse reaction; IV Status: Completed infusion; IV Intake: mg2 500ml 00:20 Drug: TORadol 30 mg Route: IVP; Site: right antecubital; la1 00:51 Follow up: Response: No adverse reaction; Pain is decreased la1 00:20 Drug: Phenergan 6.25 mg Route: IVP; Site: right antecubital; la1 00:52 Follow up: Response: No adverse reaction la1 01:03 Drug: NS 0.9% 1000 ml Route: IV; Rate: 125 ml/hr; Site: right antecubital; mg2 04:34 Follow up: IV Status: Completed infusion; IV Intake: 1000ml bb 03:39 Drug: Rocephin - (cefTRIAXone) 1 grams Route: IVPB; Infused Over: 30 mins; Site: right bb antecubital; 03:44 Follow up: IV Status: Completed infusion; IV Intake: 10ml bb 04:35 Drug: Flagyl 500 mg Volume: 100 ml; Route: IVPB; Rate: 200 ml/hr; Infused Over: 30 bb mins; Site: right antecubital; 05:12 Follow up: IV Status: Completed infusion; IV Intake: 100ml bb Disposition: 03:07 Co-signature as Attending Physician, Canelo Guerra MD I agree with the assessment and lindsey plan of care. Disposition: 11/30/18 05:34 Hospitalization ordered by Lobo Lara for Observation. Preliminary diagnosis are Abdominal tenderness, Other intestinal obstruction - early sbo/enteritis. - Bed requested for Telemetry/MedSurg (observation). - Status is Observation. iw - Condition is Fair. - Problem is new. - Symptoms have improved. UTI on Admission? No Signatures: Dispatcher [employer] EDMS Lanny Tran Corey, MD MD cha Therrien, Shelly, J LUIS-C [employer] MARKETING MANAGER-Iris Rodrigez, RN RN bb Nicky Joseph RN RN iw Attema, Lee, RN RN la1 Jeffrey Glez RN RN mg2 Corrections: (The following items were deleted from the chart) 08:04 05:34 Hospitalization Ordered by Lobo Lara MD for Observation. Preliminary bd diagnosis is Abdominal tenderness; Other intestinal obstruction - early sbo/enteritis. Bed requested for Telemetry/MedSurg (observation). Status is Observation. Condition is Fair. Problem is new. Symptoms have improved. UTI on Admission? No. lindsey 13:34 08:04 11/30/2018 05:34 Hospitalization Ordered by Lobo Lara MD for Observation. bd Preliminary diagnosis is Abdominal tenderness; Other intestinal obstruction - early sbo/enteritis. Bed requested for [facility] ER HOLD. Status is Observation. Condition is Fair. Problem is new. Symptoms have improved. UTI on Admission? No. bd 14:34 13:34 11/30/2018 05:34 Hospitalization Ordered by Lobo Lara MD for Observation. bd Preliminary diagnosis is Abdominal tenderness; Other intestinal obstruction - early sbo/enteritis. Bed requested for Telemetry/MedSurg (observation). Status is Observation. Condition is Fair. Problem is new. Symptoms have improved. UTI on Admission? No. bd 16:02 14:34 11/30/2018 05:34 Hospitalization Ordered by Lobo Lara MD for Observation. iw Preliminary diagnosis is Abdominal tenderness; Other intestinal obstruction - early sbo/enteritis. Bed requested for Telemetry/MedSurg (observation). Status is Observation. Condition is Fair. Problem is new. Symptoms have improved. UTI on Admission? No. bd
--- NOTE | 2018-11-30 05:35 | ER ---
Nurse's Notes [facility] Name: Yanelis Florentino Age: 73 yrs Sex: Female : 1945 Arrival Date: 11/29/2018 Time: 23:50 Bed 24 Private MD: Thom Gleason V Diagnosis: Abdominal tenderness;Other intestinal obstruction-early sbo/enteritis Presentation: 11/30 00:01 Presenting complaint: Patient states: I started having abd pain at around 1900, started la1 in the epigastric area but is now all over, reports nausea, normal BM this morning. Transition of care: patient was not received from another setting of care. Onset of symptoms was November 30, 2018. Risk Assessment: Do you want to hurt yourself or someone else? Patient reports no desire to harm self or others. Initial Sepsis Screen: Does the patient meet any 2 criteria? No. Patient's initial sepsis screen is negative. Does the patient have a suspected source of infection? No. Patient's initial sepsis screen is negative. Care prior to arrival: None. 00:01 Method Of Arrival: Ambulatory la1 00:01 Acuity: BRENNEN 3 la1 Historical: - Allergies: 11/29 23:59 Demerol; la1 23:59 Morphine; la1 - PMHx: 23:59 Diverticulitis; Hypothyroidism; la1 - PSHx: 23:59 Hernia repair; Bowel obstruction; la1 - Immunization history:: Adult Immunizations up to date. - Social history:: Smoking status: Patient/guardian denies using tobacco. - Ebola Screening: : No symptoms or risks identified at this time. Screenin/16 00:22 Abuse screen: Denies threats or abuse. Nutritional screening: No deficits noted. la1 Tuberculosis screening: No symptoms or risk factors identified. Fall Risk None identified. Assessment: 00:20 General: Appears in no apparent distress. uncomfortable, Behavior is calm, cooperative. la1 Pain: Complains of pain in abdomen. Neuro: Level of Consciousness is awake, alert, obeys commands, Oriented to person, place, time, situation. Cardiovascular: Capillary refill < 3 seconds Patient's skin is warm and dry. Respiratory: Airway is patent Respiratory effort is even, unlabored, Respiratory pattern is regular, symmetrical. GI: Abdomen is round non-distended, Bowel sounds diminished in right upper quadrant, left upper quadrant, right lower quadrant and left lower quadrant Abd is soft X 4 quads Abdomen is tender to palpation in right upper quadrant and left upper quadrant Reports nausea, Patient currently denies bloody stool, constipation, diarrhea, vomiting. 01:35 Reassessment: Patient appears in no apparent distress at this time. Patient and/or mg2 family updated on plan of care and expected duration. Pain level reassessed. Patient is alert, oriented x 3, equal unlabored respirations, skin warm/dry/pink. 03:40 Reassessment: pt is resting quietly, eyes open, resp unlabored, IV is patent, intact, bb with fluids infusing, no erythema or edema noted to right AC, awaiting CT results, family at bedside. 04:30 Reassessment: pt resting quietly, IV site patent, intact, with fluids infusing no bb erythema or edema noted. Awaiting CT results family at bedside. 05:30 Reassessment: Dr Guerra at bedside to discuss findings and recommendations, discussed bb admission vs discharge pt opted for admission. Instructed pt no beds available until after shift change will continue to monitor in ED. Spouse provided with recliner and blankets for comfort. 06:26 Reassessment: Pt appears to be sleeping, eyes closed, resp unlabored, awaiting room bb assignment for admission, spouse at bedside. Vital Signs: 00:01 BP 140 / 74; Pulse 80; Resp 16; Temp 97.6; Pulse Ox 98% on R/A; Weight 68.04 kg; Height la1 5 ft. 5 in. (165.10 cm); Pain 5/10; 01:34 BP 148 / 82; Pulse 78; Resp 18; Pulse Ox 96% on R/A; mg2 03:42 BP 153 / 77; Pulse 77; Resp 16 S; Temp 98.5(O); Pulse Ox 96% on R/A; bb 05:30 BP 159 / 74; Pulse 85; Resp 16 S; Temp 97.9(O); Pulse Ox 99% on R/A; Pain 0/10; bb 00:01 Body Mass Index 24.96 (68.04 kg, 165.10 cm) la1 ED Course: 11/29 23:50 Patient arrived in ED. es 23:50 Thom Gleason MD is Private Physician. es 23:56 Lulu Khalil FNP-C [facility]. snw 23:56 Canelo Guerra MD is Attending Physician. snw 23:59 Arm band placed on left wrist. la1 06/16 00:02 Triage completed. la1 00:15 Jeffrey Glez, RN is Primary Nurse. mg2 00:20 No provider procedures requiring assistance completed. Inserted saline lock: 20 gauge la1 in right antecubital area, using aseptic technique. Blood collected. 00:22 Bed in low position. Call light in reach. Side rails up X 1. la1 04:36 CT Abd/Pelvis - PO and IV Contrast In Process Unspecified. EDMS 05:33 Lobo Lara MD is Hospitalizing Provider. [facility] 06:28 Patient admitted, IV remains in place. bb Administered Medications: 00:20 Drug: NS 0.9% 500 ml Route: IV; Rate: bolus; Site: right antecubital; la1 03:14 Follow up: Response: No adverse reaction; IV Status: Completed infusion; IV Intake: mg2 500ml 00:20 Drug: TORadol 30 mg Route: IVP; Site: right antecubital; la1 00:51 Follow up: Response: No adverse reaction; Pain is decreased la1 00:20 Drug: Phenergan 6.25 mg Route: IVP; Site: right antecubital; la1 00:52 Follow up: Response: No adverse reaction la1 01:03 Drug: NS 0.9% 1000 ml Route: IV; Rate: 125 ml/hr; Site: right antecubital; mg2 04:34 Follow up: IV Status: Completed infusion; IV Intake: 1000ml bb 03:39 Drug: Rocephin - (cefTRIAXone) 1 grams Route: IVPB; Infused Over: 30 mins; Site: right bb antecubital; 03:44 Follow up: IV Status: Completed infusion; IV Intake: 10ml bb 04:35 Drug: Flagyl 500 mg Volume: 100 ml; Route: IVPB; Rate: 200 ml/hr; Infused Over: 30 bb mins; Site: right antecubital; 05:12 Follow up: IV Status: Completed infusion; IV Intake: 100ml bb Intake: 03:14 IV: 500ml; Total: 500ml. mg2 03:44 IV: 10ml; Total: 510ml. bb 04:34 IV: 1000ml; Total: 1510ml. bb 05:12 IV: 100ml; Total: 1610ml. bb Outcome: 05:34 Decision to Hospitalize by Provider. lindsey 06:27 Condition: stable bb 06:27 Instructed on the need for admit. 08:00 Admitted to ER Hold. Please see [facility] for further documentation. iw 15:26 Admitted to Med/surg accompanied by tech, family with patient, via wheelchair, room iw 207, Report called to ROBERTO Sutherland 16:02 Patient left the ED. iw Signatures: Dispatcher [employer] Canelo Ochoa MD MD cha Therrien, Shelly, [employer]-C [employer]-Csnw Sophia Sanchez Brenda, RN RN Nicky Johnson RN RN Jeremy Hartley RN RN la1 Jeffrey Glez RN RN mg2
[2018-11-30] MEDS: NA CHLORIDE 0.9% 1,000 ML IV SCH ×2 (08:10→18:10)
[2018-11-30] MEDS ORDERED: ONDANSETRON 4 MG/2 ML VIAL IV PRN (08:10)
[2018-11-30] MEDS: ENOXAPARIN 40 MG/0.4 ML SQ SCH (09:00)
[2018-11-30] MEDS: METRONIDAZOLE 500mg IVPB 500 MG/100 ML BAG IV SCH ×2 (09:00→16:54)
[2018-11-30] MEDS: CIPROFLOXACIN 400mg IV 400 MG/200 ML BAG IV SCH ×2 (09:00→21:03)
[2018-11-30] MEDS ORDERED: CIPROFLOXACIN 400mg IV 400 MG/200 ML BAG IV ONE (09:22)
[2018-11-30] MEDS ORDERED: ENOXAPARIN 40 MG/0.4 ML SQ ONE (09:28)
[2018-11-30] MEDS ORDERED: POTASSIUM 25 MEQ EFFERV TAB PO ONE (11:00)
[2018-11-30] MEDS ORDERED: POTASSIUM 25 MEQ EFFERV TAB ONE (12:00)
[2018-11-30 17:57] VITALS: BMI 26.8
[2018-12-01] MEDS: METRONIDAZOLE 500mg IVPB 500 MG/100 ML BAG IV SCH ×3 (00:21→16:44)
[2018-12-01] MEDS: NA CHLORIDE 0.9% 1,000 ML IV SCH ×2 (00:21→16:45)
--- NOTE | 2018-12-01 01:26 | HP ---
Date of Admission: 11/30/2018 Chief Complaint: Abdominal pain. History Of Present Illness: The patient is a 73-year-old woman with past medical history of hypothyr oidism and diverticulosis presenting to the emergency room with abdominal pain mainly in the epigastr ic area associated with nausea, but no vomiting. The patient mentioned that around 3:30 p.m. she had a fried fish and after that she started having abdominal pain that is mainly in epigastric area. Pa in was like 09/24 with no radiation, no diarrhea, no fever or no other complaints. The patient had a history of abdominal hernia and small bowel obstruction. The denied cough, chest pain, palpitation, seizures, headache, dizziness, change in urinary or bowel habits. Allergies: THE PATIENT IS ALLERGIC TO CODEINE, , AND MORPHINE. Past Medical History: As above. Past Surgical History: Hernia repair and hysterectomy. Social History: She denied smoking, drinking, or illicit drug abuse. Family History: Noncontributory. Physical Examination: Vital Signs: Temperature of 98.6, pulse rate of 74, blood pressure of 144/79, and O2 saturation of 9 7% on room air. General: The patient is awake, alert, oriented x3, not in acute distress. Neck: Supple. Head: Normocephalic, atraumatic. Eyes: PERRLA. Abdomen: Soft, nontender. Bowel sounds were positive. No rigidity. Lungs: Bilateral air entry. No wheezing or crackles. Cardiovascular: S1 and S2. Regular rate and rhythm. No murmur. Extremities: No edema, cyanosis, or clubbing. Musculoskeletal: Normal range of motion. Neurological: No focal deficit noted. Skin: No rash. Laboratory Data: White blood cell count of 9.8, hemoglobin 16.1, platelets of 318, hematocrit of 47. 8. Sodium of 141, potassium of 3.7, BUN of 12, creatinine of 0.7. AST and ALT within normal limits. Lipase of 307. UA was negative. Imaging: The patient had a CT abdomen and pelvis done which showed multiple distended and borderline dilated fluid filled small bowel loops measuring up to 2.5 cm in diameter with associated fecalizati on of the distal and small bowel and liquid stool in the cecum. These findings are nonspecific underlying angitis, which may be infectious or inflammatory in nature. There is also a small a mount of fluid in the lower abdomen and pelvis, but no evidence of a free intraperitoneal air and ear ly small bowel obstruction is not entirely excluded. Colonic diverticulosis without carlos manuel diverticul itis. Assessment And Plan: 1.Abdominal pain most likely due to enteritis. 2.IV fluid hydration. 3.Keep n.p.o. 4.Cipro and Flagyl. 5.Pain meds. 6.GI consult. 7.Hypothyroidism. Resume home meds. 8.DVT prophylaxis. SAM Voice ID: [id number]
[2018-12-01 03:24] VITALS: O2SAT 99
[2018-12-01] MEDS ORDERED: THYROID 30 MG TAB PO SCH (06:00)
[2018-12-01 06:31] LABS: Absolute Lymphocytes (CBC) 1.8 K/uL (0.7-4.9); Basophils % 0.9 % (0-1.3); Eosinophils % 5.5 % (0-4.4); Lymphocytes % 28.6 % (15.3-44.8); MPV 7.7 fL (7.6-11.3); Monocytes % 9.3 % (3.3-12.3)
[2018-12-01 06:50] LABS: BUN Blood Urea Nitrogen 8 mg/dL (7-18); Bicarbonate 25 mmol/L (21-32); Glucose Level 101 mg/dL (74-106); Magnesium 2.1 mg/dL (1.8-2.4); Sodium Level 143 mmol/L (136-145)
[2018-12-01] MEDS: CIPROFLOXACIN 400mg IV 400 MG/200 ML BAG IV SCH (08:04)
[2018-12-01] MEDS: ENOXAPARIN 40 MG/0.4 ML SQ SCH (08:07)
--- NOTE | 2018-12-01 11:33 | RAD REPORT ---
EXAM DESCRIPTION: CT - Abdomen Pelvis W Contrast - 11/30/2018 6:12 am CLINICAL HISTORY: 73-year-old female with abdominal pain TECHNIQUE: Axial CT imaging of the abdomen and pelvis was performed following the administration of intravenous contrast.. Sagittal and coronal reconstructed images were then performed. The CT stud y is performed according to ALARA (as low as reasonably achievable) or ALARA/IMAGE GENTLY, with autom atic adjustment of mA and/or kV according to patient size. Performed on: 11/30/2018 at 2:35 AM. Comparison: Prior CT abdomen and pelvis performed on 02/20/2018 FINDINGS: Lung bases: There is minimal bibasilar atelectasis and/or fibrosis, similar when compared to the prior study.. Liver: The liver is normal in size and configuration. No focal hepatic abnormalities are identified. Liver attenuation is within normal limits. Spleen: The spleen is normal is size, configuration and attenuation. Gallbladder and bile duct: The gallbladder is well distended and unremarkable. There is no biliary ductal dilatation. Pancreas: The pancreas is grossly normal in size and configuration. Adrenal Glands: The adrenal glands are normal in size and configuration. Kidneys: The kidneys are normal in size and configuration. There is no evidence of hydronephrosis. Th ere is no evidence of nephrolithiasis. No definite solid or cystic renal mass lesions are identified. Stomach: The stomach is grossly normal. There is a small hiatal hernia. Bowel: The bowel gas pattern is non specific and non obstructive. There are multiple distended and raphael rderline dilated fluid-filled small bowel loops measuring up to 2.5 cm in diameter. There is fecaliza tion of the distal small bowel. There is also a small amount of free fluid within the lower abdomen a nd pelvis of unclear etiology. This may be related to an infectious or inflammatory process involving the small bowel. There is colonic diverticulosis without carlos manuel diverticulitis. No definite focal col onic wall thickening is appreciated. There is some liquid stool in the cecum. Appendix: The appendix is not clearly visualized on this examination and may be surgically absent. Free air: There is no evidence of free air. Free fluid: As described above, there is a small amount of free fluid in the lower abdomen and pelvis . Vasculature: The aorta is normal in caliber and contour. The inferior vena cava is grossly unremarkab le. There are mild atherosclerotic calcifications along the abdominal aorta and iliac arteries. Lymphadenopathy: No pathologic lymphadenopathy is identified. Bladder: The bladder is well distended and smooth in contour. Reproductive: The uterus is surgically absent. Bones: No acute osseous abnormalities are identified. There is minimal anterolisthesis of L4 relative to L5. There are mild degenerative changes in the lower thoracic spine. Soft tissues: No focal soft tissue abnormalities are identified. IMPRESSION: 1. There are multiple distended and borderline dilated fluid-filled small bowel loops me asuring up to 2.5 cm in diameter with associated fecalization of the distal small bowel and liquid st ool in the cecum. These findings are nonspecific but could reflect underlying enteritis which may be infectious or inflammatory in nature. There is also a small amount of free fluid in the lower abdomen and pelvis but no evidence of free intraperitoneal air. An early small bowel obstruction is not enti rely excluded. 2. Colonic diverticulosis without carlos manuel diverticulitis. 3. Remote hysterectomy. 4. Stable small hiatal hernia. Electronically signed by: Isatu Guzman DO 11/30/2018 4:58 AM CDT Due to temporary technical issues with the PACS/Fluency reporting system, reports are being signed by the in house radiologist as a courtesy to ensure prompt reporting. The interpreting radiologist is f ully responsible for the content of the report.
[2018-12-01 12:11] VITALS: TEMP 98.5
--- NOTE | 2018-12-01 14:36 | RAD REPORT ---
EXAM DESCRIPTION: RAD - Abdomen 1 View (KUB) - 12/01/2018 2:27 pm CLINICAL HISTORY: Abdomen pain. FINDINGS: Supine views of the abdomen were obtained. Pneumoperitoneum is difficult to detect 1 the p atient is supine. Upper right view of the abdomen is recommended if pneumoperitoneum is a concern. Bowel gas pattern is unremarkable. Contrast from recent CT is present throughout the colon. Surgical clips are present within the abdomen and pelvis
[2018-12-01 16:27] VITALS: BP 148/78
--- NOTE | 2018-12-01 16:30 | RAD REPORT ---
EXAM DESCRIPTION: RAD - Abdomen W Erect - 12/01/2018 3:48 pm CLINICAL HISTORY: r/o pneumoperitoneum Pain COMPARISON: Abdomen 1 View (KUB) dated 12/01/2018; Abdomen Pelvis W Contrast dated 11/30/2018 FINDINGS: Contrast is seen in the colon. Prominent small bowel loop in the left abdomen is present b ut does not appear to represent bowel obstruction. No subdiaphragmatic free air seen. Postsurgical clips are present in the pelvis. IMPRESSION: No acute process identified.
== END 2018-12-01 18:53 | disposition home or self-care (01) ==
LOC: ER 23:47 → ERHOLD 11-30 06:17 → 2ND 11-30 13:53 → ERHOLD 11-30 14:34 → 2ND 11-30 15:49
PROVIDERS: ADMIT Internal Medicine; ATTEND Internal Medicine
DX: R10.9 Unspecified abdominal pain (principal); E03.9 Hypothyroidism, unspecified
CPT/HCPCS: 96365; 96361; 87088; 85025 ×2; 87086; 80048 ×2; 36415 ×2; 83735; 80076; 81015; 83690; 74177; 74018; 74019; 96375; 99285; Q9967; J2550; J1650; J0696; J7030 ×4; J2405; J0744 ×3; G0378 ×2

== ENCOUNTER 2022-01-13 15:35 | Emergency (ER) | payer OTHER ==
--- NOTE | 2022-01-13 16:05 | ER ---
Nurse's Notes [facility] Name: Yanelis Florentino Age: 76 yrs Sex: Female : 1945 Arrival Date: 01/13/2022 Time: 15:36 Bed Waiting Private MD: Thom Gleason V Diagnosis: COVID-19 Presentation: 01/13 15:58 Chief complaint: Nasal congestion, cough, congestion, nausea, and body aches x 2-3 hb days. Positive COVID home test today. Coronavirus screen: Client presents with at least one sign or symptom that may indicate coronavirus-19. Standard/surgical mask placed on the client. Provider contacted for isolation considerations. Ebola Screen: No symptoms or risks identified at this time. Initial Sepsis Screen: Does the patient meet any 2 criteria? No. Patient's initial sepsis screen is negative. Does the patient have a suspected source of infection? No. Patient's initial sepsis screen is negative. Risk Assessment: Do you want to hurt yourself or someone else? Patient reports no desire to harm self or others. Onset of symptoms was January 11, 2022. 15:58 Method Of Arrival: Ambulatory hb 15:58 Acuity: BRENNEN 4 hb Triage Assessment: 16:00 General: Appears in no apparent distress. Behavior is calm, cooperative. Pain: Pain hb currently is 3 out of 10 on a pain scale. EENT: No signs and/or symptoms were reported regarding the EENT system. Neuro: Level of Consciousness is awake, alert, obeys commands, Oriented to person, place, time, situation. Cardiovascular: Patient's skin is warm and dry. Respiratory: Respiratory effort is even, unlabored, Respiratory pattern is regular, symmetrical. GI: No signs and/or symptoms were reported involving the gastrointestinal system. : No signs and/or symptoms were reported regarding the genitourinary system. Derm: Skin is pink, warm \T\ dry. Musculoskeletal: No signs and/or symptoms reported regarding the musculoskeletal system. Historical: - Allergies: 15:59 Demerol; hb 15:59 Morphine; hb - PMHx: 15:59 Diverticulitis; Hypothyroidism; hb - Immunization history:: Adult Immunizations up to date. - Social history:: Smoking status: Patient denies any tobacco usage or history of. Screenin:00 Abuse screen: Denies threats or abuse. Denies injuries from another. Nutritional hb screening: No deficits noted. Tuberculosis screening: No symptoms or risk factors identified. Fall Risk None identified. Assessment: 16:00 General: see triage assessment . hb Vital Signs: 15:58 BP 140 / 87; Pulse 80; Resp 16; Temp 97.4; Pulse Ox 97% on R/A; Pain 3/10; hb ED Course: 15:36 Patient arrived in ED. mr 15:36 Thom Gleason MD is Private Physician. mr 15:49 Lala Chopra MD is Attending Physician. sd2 15:59 Triage completed. hb 15:59 Arm band placed on. hb 16:00 Patient has correct armband on for positive identification. hb 16:00 No provider procedures requiring assistance completed. hb 16:04 Thom Gleason MD is Referral Physician. sd2 Administered Medications: No medications were administered Medication: 16:00 VIS not applicable for this client. hb Outcome: 16:04 Discharge ordered by . sd2 16:15 Patient left the ED. hb Signatures: Marcia Tucker DooleyIrma, RN RN Lala Chopra MD MD sd2 Corrections: (The following items were deleted from the chart) 16:00 15:58 Chief complaint: Nasal congestion, cough, congestion, and body aches x 2-3 days. hb Positive COVID home test today. hb
--- NOTE | 2022-01-13 16:05 | EDPHYS ---
Physician Documentation [facility] Name: Yanelis Florentino Age: 76 yrs Sex: Female : 1945 Arrival Date: 01/13/2022 Time: 15:36 Bed Waiting Private MD: Thom Gleason V ED Physician Lala Chopra HPI: 01/13 16:12 This 76 yrs old Female presents to ER via Ambulatory with complaints of Covid+,wants RX.sd2 16:12 76-year-old female presents with chief complaint of positive home COVID test. She sd2 reports she has had some mild cough, congestion and sneezing for the past 2 to 3 days. She denies any known fevers, chest pain, shortness of breath, vomiting or diarrhea. She states she only has a history of hypothyroidism which she takes thyroid medication for. She otherwise denies any acute complaints at this time.. Historical: - Allergies: 15:59 Demerol; hb 15:59 Morphine; hb - PMHx: 15:59 Diverticulitis; Hypothyroidism; hb - Immunization history:: Adult Immunizations up to date. - Social history:: Smoking status: Patient denies any tobacco usage or history of. ROS: 16:12 Constitutional: Negative for fever, chills, and weight loss, Eyes: Negative for injury, sd2 pain, redness, and discharge, ENT: Negative for injury, pain, and discharge. Positive for sneezing and congestion. Cardiovascular: Negative for chest pain, palpitations, and edema, Respiratory: Negative for shortness of breath, cough, wheezing. Abdomen/GI: Negative for abdominal pain, nausea, vomiting, diarrhea. MS/Extremity: Negative for injury and deformity, Skin: Negative for injury, rash, and discoloration, Neuro: Negative for headache, numbness and tingling. Exam: 16:12 Constitutional: This is a well developed, well nourished patient who is awake, alert, sd2 and in no acute distress. Head/Face: Normocephalic, atraumatic. ENT: Nares patent. Mucous membranes moist. Nasal congestion present. Chest/axilla: Normal chest wall appearance and motion. Nontender with no deformity. Cardiovascular: Regular rate and rhythm with a normal S1 and S2. No gallops, murmurs, or rubs. 2+ distal pulses. Respiratory: Lungs have equal breath sounds bilaterally, clear to auscultation and percussion. No rales, rhonchi or wheezes noted. No increased work of breathing, no retractions or nasal flaring. Abdomen/GI: Soft, non-tender, with normal bowel sounds. No guarding or rebound. No evidence of tenderness throughout. Skin: Warm, dry with normal turgor. Normal color with no rashes, no lesions, and no evidence of cellulitis. MS/ Extremity: Pulses equal, no cyanosis. Neurovascular intact. Full, normal range of motion. Ambulatory without difficulty. Psych: Awake, alert, with orientation to person, place and time. Behavior, mood, and affect are within normal limits. Vital Signs: 15:58 BP 140 / 87; Pulse 80; Resp 16; Temp 97.4; Pulse Ox 97% on R/A; Pain 3/10; hb MDM: 16:03 Patient medically screened. sd2 16:12 Differential Diagnosis COVID, flu, URI, bronchitis, PNA among others. Data reviewed: sd2 vital signs, nurses notes. Counseling: I had a detailed discussion with the patient and/or guardian regarding: the historical points, exam findings, and any diagnostic results supporting the discharge/admit diagnosis, the need for outpatient follow up, to return to the emergency department if symptoms worsen or persist or if there are any questions or concerns that arise at home. Medical screen evaluation completed. [facility] emergency medical condition absent. ED course: Pt with positive home COVID test. No need to repeat. Currently with mild symptoms. Discussed paxlovid risks and benefits as well as monoclonal antibody infusion. Pt agreeable to Paxlovid. She was advised of continued supportive care for her symptoms and need for outpatient follow up. Verbalizes understanding of discharge plan and strict return precautions.. Administered Medications: No medications were administered Disposition: 17:24 Chart complete. sd2 Disposition Summary: 01/13/22 16:04 Discharge Ordered Location: Home sd2 Problem: new sd2 Symptoms: are unchanged sd2 Condition: Stable sd2 Diagnosis - COVID-19 sd2 Followup: sd2 - With: Thom Gleason MD - When: 2 - 3 days - Reason: Recheck today's complaints, Continuance of care, Re-evaluation by your physician Followup: sd2 - With: Emergency Department - When: As needed - Reason: Discharge Instructions: - Discharge Summary Sheet sd2 - COVID-19 sd2 - 10 Things You Can Do to Manage Your COVID-19 Symptoms at Home - [facility] sd2 Forms: - Medication Reconciliation Form sd2 - Thank You Letter sd2 - Antibiotic Education sd2 - Prescription Opioid Use sd2 Prescriptions: - Paxlovid Oral tablet - take 1 tablet by ORAL route 2 times per day 300 mg nirmatrelvir (two 150 mg sd2 tablets) with 100 mg ritonavir (one 100 mg tablet), with all three tablets taken together twice daily for 5 days; 30 tablet; Refills: 0, Product Selection Permitted Signatures: Irma Dooley RN RN Lala Chopra MD MD sd2
[2022-01-13 17:27] VITALS: BP 140/87; TEMP 97.4; O2SAT 97
== END 2022-01-13 16:15 | disposition home or self-care (01) ==
LOC: ER 15:35
DX: U07.1 COVID-19 (principal); E03.9 Hypothyroidism, unspecified; Z88.5 Allergy status to narcotic agent
CPT/HCPCS: 99281